=== PATIENT | male | born 1940 | race Caucasian/White ===

== ENCOUNTER → 2017-10-05 | Outpatient (CLI) | payer MEDICARE, OTHER | END | disposition home or self-care (01) | LOC: ROC 08:03 | PROVIDERS: ATTEND Radiology Radiation Oncology | DX: Z51.0 Encounter for antineoplastic radiation therapy (principal); D33.3 Benign neoplasm of cranial nerves | CPT/HCPCS: G0463 ==

== ENCOUNTER → 2018-07-19 | Outpatient (CLI) | payer MEDICARE, OTHER | END | disposition home or self-care (01) | LOC: ROC 13:40 | PROVIDERS: ATTEND Radiology Radiation Oncology | DX: D33.3 Benign neoplasm of cranial nerves (principal) | CPT/HCPCS: G0463 ==

== ENCOUNTER → 2018-09-07 | Outpatient (CLI) | payer MEDICARE, OTHER ==
[~2018-09-07] MED LIST: GADOBUTROL 10 MMOL/10 ML PFS ONE
== END | disposition home or self-care (01) ==
LOC: CFH 11:16
PROVIDERS: ATTEND Radiology Radiation Oncology
DX: M51.36 Other intervertebral disc degeneration, lumbar region (principal); G83.4 Cauda equina syndrome; M43.8X6 Other specified deforming dorsopathies, lumbar region; D33.4 Benign neoplasm of spinal cord
CPT/HCPCS: 72157; 72158; A9585

== ENCOUNTER → 2019-01-31 | Outpatient (CLI) | payer MEDICARE, OTHER | END | disposition home or self-care (01) | LOC: ROC 10:00 | PROVIDERS: ATTEND Radiology Radiation Oncology | DX: D33.4 Benign neoplasm of spinal cord (principal) | CPT/HCPCS: G0463 ==